=== PATIENT | female | born 1960 | race Caucasian/White ===

== ENCOUNTER 2018-08-07 08:52 | Day surgery (SDC) | payer MEDICARE, MEDICAID ==
[2018-08-07] VITALS (12 sets, daily range): BP systolic 103–132; BP diastolic 68–85; PULSE 72–79; TEMP 97.6
[~2018-08-07] VITALS: Ht 162.7 cm; Wt 79.0 kg
[2018-08-07 09:42] LABS: HEMATOCRIT 40.8 % (37.0-47.0); HEMOGLOBIN 13.6 g/dl (12.5-16.0); MEAN CELL VOLUME 93 fl (80.0-100.0); MEAN CORPUSCULAR HEMOGLOBIN 31 pg (27.0-31.0); MEAN CORPUSCULAR HGB CONC 33 g/dl (33.0-37.0); MEAN PLATELET VOLUME 9.4 fl (7.4-10.4); PLATELET COUNT 289 K/mm3 (130-400); REDCELL DISTRIBUTION WIDTH-CV 12.6 % (11.5-14.5)
[2018-08-07 09:48] LABS: PROTHROMBIN TIME 10.9 SECONDS (9.7-12.8)
[2018-08-07 09:56] LABS: CALCIUM 9.6 mg/dL (8.4-10.2); CREATININE, serum 0.71 mg/dL (0.52-1.25); POTASSIUM 3.8 mmol/L (3.4-5.0)
[2018-08-07] MEDS ORDERED: LAMICTAL150 MG PO (10:12)
[2018-08-07] MEDS ORDERED: FOSAMAX 70MG TA70 MG PO (10:13)
[2018-08-07] MEDS ORDERED: COGENTIN 1MG1 MG/TAB PO (10:14)
[2018-08-07] MEDS ORDERED: GEODON60 MG PO (10:16)
[2018-08-07] MEDS ORDERED: GEODON80 MG PO (10:16)
[2018-08-07] MEDS ORDERED: ALDACTONE 25MG25 M1 PO (10:17)
[2018-08-07] MEDS ORDERED: FLAXSEED OIL1000 MG PO (10:38)
[2018-08-07] MEDS ORDERED: MASON NATURAL1200 MG PO (10:39)
[2018-08-07] MEDS ORDERED: MULTIPLE VITAMI1 CAP PO (10:40)
[2018-08-07] MEDS ORDERED: CALCIUM 600/VIT1 CAP PO (10:40)
[2018-08-07] MEDS ORDERED: VITAMINC1000TA PO (10:40)
[2018-08-07] MEDS ORDERED: PRILOSEC 20MG20 MG PO (10:41)
[2018-08-07] MEDS ORDERED: LINZESS145CAP PO (10:43)
[2018-08-07] MEDS ORDERED: COZAAR100 MG PO (10:43)
[2018-08-07] MEDS ORDERED: STOOL SOFTENER100 M2 PO (10:44)
[2018-08-07] MEDS ORDERED: XIIDRA1 EACH OP (10:44)
[2018-08-07] MEDS ORDERED: FLONASEALLERGY NS (10:46)
[2018-08-07] MEDS ORDERED: TESSALON P100 MG/CAP PO (10:47)
[2018-08-07] MEDS ORDERED: TYLENOL 500MG500 MG PO (10:48)
[2018-08-07] MEDS ORDERED: HALLS5 MG PO (10:51)
== END 2018-08-07 17:27 | disposition home or self-care (01) ==
LOC: COL.CAR 08:52
PROVIDERS: Internal Medicine Cardiovascular Disease
DX: R06.02 Shortness of breath (principal); R07.9 Chest pain, unspecified; I10 Essential (primary) hypertension; Z79.899 Other long term (current) drug therapy
CPT/HCPCS: J1644; J2250; J3010; Q9967

== ENCOUNTER → 2018-10-09 | Outpatient (CLI) | payer MEDICARE, MEDICAID ==
[~2018-10-09] MED LIST: ALDACTONE 25MG25 M1 PO; CALCIUM 600/VIT1 CAP PO; COGENTIN 1MG1 MG/TAB PO; COZAAR100 MG PO; FLAXSEED OIL1000 MG PO; FLONASEALLERGY NS; FOSAMAX 70MG TA70 MG PO; GEODON60 MG PO; GEODON80 MG PO; HALLS5 MG PO; LAMICTAL150 MG PO; LINZESS145CAP PO; MASON NATURAL1200 MG PO; MULTIPLE VITAMI1 CAP PO; PRILOSEC 20MG20 MG PO; STOOL SOFTENER100 M2 PO; TESSALON P100 MG/CAP PO; TYLENOL 500MG500 MG PO; VITAMINC1000TA PO; XIIDRA1 EACH OP
== END ==
LOC: COL.PUL 12:45
DX: R05 Cough (principal)
CPT/HCPCS: J7674